=== PATIENT | female | born 1940 | race Caucasian/White ===

== ENCOUNTER 2016-08-20 17:44 | Emergency (ER) | payer MEDICARE ==
[2016-08-20 20:53] LABS: HEMOGLOBIN 13.1 gm/dl (12.3-15.3); RED BLOOD COUNT 4.72 M/UL (4.00-5.10); WHITE BLOOD COUNT 9.3 K/UL (4.5-11.0)
[2016-08-20 21:13] LABS: BUN/CREATININE RATIO 15 (0-10)
[2016-09-29] MEDS ORDERED: VITAMIN D3400 UNIT PO (06:34)
[2016-09-29] MEDS ORDERED: ZOCOR40 MG PO (06:35)
[2016-09-29] MEDS ORDERED: PREVACID30 MG PO (06:35)
[2016-09-29] MEDS ORDERED: MOBIC7.5 MG PO (06:36)
[2016-09-29] MEDS ORDERED: ZYRTEC10 M3 PO (06:37)
[2016-09-29] MEDS ORDERED: VITAMIN B-121000 MCG PO (06:37)
[2016-09-29] MEDS ORDERED: MULTIVITAMINS1 EAC1 PO (06:38)
[2016-09-29] MEDS ORDERED: MECLIZINE HCL12.5 MG PO (06:39)
[2016-09-29] MEDS ORDERED: ZOFRAN4 MG PO (06:40)
[2016-09-29] MEDS ORDERED: ESTROGEN CREAM TP (06:42)
[2016-09-29] MEDS ORDERED: NORCO 5-325 TA1 EACH PO (12:39)
== END 2016-08-20 23:47 | disposition home or self-care (01) ==
LOC: ER1 17:44
PROVIDERS: Physician Assistant
DX: R42 Dizziness and giddiness (principal); R53.83 Other fatigue; R30.0 Dysuria; R63.0 Anorexia; R11.0 Nausea
CPT/HCPCS: 36415; 70450; 71020; 80053; 81001; 82550; 82553; 83735; 83874; 84439; 84443; 84484; 85025; 87086; 93005; 96360; 96361; 99284; J7030

== ENCOUNTER → 2016-09-29 | Day surgery (SDC) | payer MEDICARE ==
[~2016-09-29] VITALS: Ht 154.9 cm; Wt 67.1 kg
[~2016-09-29] MED LIST: ESTROGEN CREAM TP; MECLIZINE HCL12.5 MG PO; MOBIC7.5 MG PO; MULTIVITAMINS1 EAC1 PO; NORCO 5-325 TA1 EACH PO; PREVACID30 MG PO; VITAMIN B-121000 MCG PO; VITAMIN D3400 UNIT PO; ZOCOR40 MG PO; ZOFRAN4 MG PO; ZYRTEC10 M3 PO
== END | disposition home or self-care (01) ==
LOC: OR 05:54
PROVIDERS: Surgery
PROC: 0FT44ZZ Resection of Gallbladder, Percutaneous Endoscopic Approach (ICD-10-PCS; principal; 2016-09-29 07:30)
DX: K80.18 Calculus of gallbladder with other cholecystitis without obstruction (principal); M19.90 Unspecified osteoarthritis, unspecified site; K21.9 Gastro-esophageal reflux disease without esophagitis; E78.00 Pure hypercholesterolemia, unspecified; G43.909 Migraine, unspecified, not intractable, without status migrainosus; G47.30 Sleep apnea, unspecified; Z79.899 Other long term (current) drug therapy; Z87.442 Personal history of urinary calculi; Z98.41 Cataract extraction status, right eye; Z98.42 Cataract extraction status, left eye; Z87.01 Personal history of pneumonia (recurrent); Z87.440 Personal history of urinary (tract) infections; Z85.828 Personal history of other malignant neoplasm of skin
CPT/HCPCS: J0295; J1100; J2405; J2710; J3010; J7030; J7050; J7120; Q9962